=== PATIENT | female | born 1975 | race Two or more races ===

== ENCOUNTER 2021-06-19 11:02 | Emergency (ER) | payer MEDICAID, OTHER ==
[~2021-06-19] VITALS: Ht 162.6 cm; Wt 77.1 kg
[2021-06-19 11:08] VITALS: BP 117/76
[2021-06-19] MEDS ORDERED: AZIT1POW PO (12:04)
[2021-06-19] MEDS ORDERED: METH4PAK PO (12:05)
== END 2021-06-19 12:52 | disposition home or self-care (01) ==
LOC: ER 11:02
DX: U07.1 COVID-19 (principal); J45.909 Unspecified asthma, uncomplicated; E11.9 Type 2 diabetes mellitus without complications; Z90.710 Acquired absence of both cervix and uterus
CPT/HCPCS: 71045